=== PATIENT | female | born 1960 | race Caucasian/White ===

== ENCOUNTER 2023-04-06 09:44 | Emergency (ER) | payer OTHER ==
[~2023-04-06] VITALS: Ht 172.7 cm; Wt 68.0 kg
[2023-04-06 11:16] LABS: BASOPHILS % (AUTO) 0.3 % (0.0-2.0); EOSINOPHILS % (AUTO) 0.3 % (0.0-6.0); HEMATOCRIT 38 % (33-45); HEMOGLOBIN 12.7 g/dL (11.5-14.8); LYMPHOCYTES # (AUTO) 1.2 K/uL (0.8-4.8); LYMPHOCYTES % (AUTO) 14.3 % (20.0-44.0); MEAN CORPUSCULAR HEMOGLOBIN 31 PG (26.0-33.0); MEAN CORPUSCULAR HGB CONC 34 g/dl (31.0-36.0); MEAN CORPUSCULAR VOLUME 91 fL (82-100); MONOCYTES # (AUTO) 0.6 K/uL (0.1-1.30); MONOCYTES % (AUTO) 6.6 % (2.0-12.0); NEUTROPHILS # (AUTO) 6.8 K/uL (1.8-8.9); NEUTROPHILS % (AUTO) 78.5 % (43.0-81.0); PLATELET COUNT (AUTO) 201 K/uL (150-450); RED BLOOD CELL COUNT(AUTO) 4.17 MIL/uL (4.0-5.2); RED CELL DISTRIBUTION WIDTH 13.7 % (11.5-15.0); WHITE BLOOD COUNT (AUTO) 8.6 K/uL (4.3-11.0)
[2023-04-06 11:27] LABS: CALCIUM, SERUM 9.7 mg/dL (8.5-10.1); CREATININE 0.8 mg/dL (0.6-1.3); POTASSIUM 3.8 mmol/L (3.5-5.1)
[2023-04-06] MEDS ORDERED: IV NS 0.9% 250 ML IV ONE (12:07)
[2023-04-06] MEDS ORDERED: IOHEXOL-300 100 ML VIAL IV ONE (12:07)
[2023-04-06] MEDS ORDERED: IBUPROFEN 600 MG TABLET PO ONE (12:30)
[2023-04-06] MEDS ORDERED: HYDROCODONE/APAP 5/325MG TABLET PO ONE (12:30)
[2023-04-06] MEDS ORDERED: HYDROCODONE/APAP 5/325MG TABLET ONE (12:33)
[2023-04-06] MEDS ORDERED: IBUPROFEN 600 MG TABLET ONE (12:33)
[2023-04-06] MEDS ORDERED: AMOX/CLAVULANATE 875 MG TABLET PO ONE (13:00)
[2023-04-06] MEDS ORDERED: AMOX/CLAVULANATE 875 MG TABLET ONE (13:03)
[2023-04-06] MEDS ORDERED: AMOX-430 PO (14:04)
[2023-04-06] MEDS ORDERED: IBUP-1955 PO (14:04)
[2023-04-06 14:15] VITALS: BP 125/80; TEMP 98.1; O2SAT 99
== END 2023-04-06 14:14 | disposition home or self-care (01) ==
LOC: ER 09:59
DX: K11.20 Sialoadenitis, unspecified (principal)
CPT/HCPCS: 99285; 70487; 85025; 80048; 36415; J7050; Q9967